=== PATIENT | male | born 1980 | race Caucasian/White ===

== ENCOUNTER 2016-07-06 12:52 | Emergency (ER) | payer OTHER ==
[2016-07-06 13:04] VITALS: TEMP 98
--- NOTE | 2016-07-06 13:06 | EDPHY ---
H & P Time Seen by Provider: 07/06/16 12:58 HPI/ROS: CHIEF COMPLAINT: Fall HISTORY OF PRESENT ILLNESS: the patient is a 36-year-old man who was working on a telephone pole when it tipped over. He states that he was about 30 feet up when the rotten pole broke and tipped. He slowly fell with it to the ground and the pole hit his head. He states that he hit his face on the pole. He denies any pain or injury to his extremities or torso. He states that he seeing stars in feels slightly confused. He denies loss of consciousness. He is ambulatory. he was wearing a hard hat. REVIEW OF SYSTEMS: Constitutional: denies: chills, fever, recent illness, recent injury EENTM: denies: blurred vision, double vision, nose congestion Respiratory: denies: cough, shortness of breath Cardiac: denies: chest pain, irregular heart rate, lightheadedness, palpitations Gastrointestinal/Abdominal: denies: abdominal pain, diarrhea, nausea, vomiting, blood streaked stools Genitourinary: denies: dysuria, frequency, hematuria, pain Musculoskeletal: See HPI Skin: denies: lesions, rash, jaundice, bruising Neurological: see HPI Hematologic/Lymphatic: denies: blood clots, easy bleeding, easy bruising Immunologic/allergic: denies: HIV/AIDS, transplant EXAM: GENERAL: Well-appearing, well-nourished and in no acute distress. HEAD: Atraumatic, normocephalic. EYES: Pupils equal round and reactive to light, extraocular movements intact, sclera anicteric, conjunctiva are normal. ENT: TMs normal, nares patent, Abrasion to left cheek, no bony tenderness. No malocclusion. Small abrasions on mucosal aspect of left cheek. NECK: Normal range of motion, supple without lymphadenopathy or JVD. LUNGS: Breath sounds clear to auscultation bilaterally and equal. No wheezes rales or rhonchi. HEART: Regular rate and rhythm without murmurs, rubs or gallops. ABDOMEN: Soft, nontender, normoactive bowel sounds. No guarding, no rebound. No masses appreciated. BACK: No CVA tenderness, no spinal tenderness, step-offs or deformities EXTREMITIES: Normal range of motion, no pitting or edema. No clubbing or cyanosis. NEUROLOGICAL: Cranial nerves II through XII grossly intact. Normal speech, normal gait. 5/5 strength, normal movement in all extremities, normal sensation PSYCH: Normal mood, normal affect. SKIN: Abrasion to left cheek Source: Patient Exam Limitations: No limitations - Medical/Surgical History Hx Asthma: No Hx Chronic Respiratory Disease: No Hx Diabetes: No Hx Cardiac Disease: No Hx Renal Disease: No Hx Cirrhosis: No Hx Alcoholism: No - Family History Significant Family History: No pertinent family hx - Social History Alcohol Use: Sober Drug Use: None Constitutional: Initial Vital Signs Temperature (C) 36.6 C 07/06/16 13:01 Heart Rate 78 07/06/16 13:01 Respiratory Rate 18 07/06/16 13:01 Blood Pressure 114/70 07/06/16 13:01 O2 Sat (%) 97 07/06/16 13:01 O2 Delivery Mode Room Air Allergies/Adverse Reactions: No Known Allergies Allergy (Unverified 09/06/11 20:56) Home Medications: Medication Instructions Recorded Miscellaneous Medical Supply [NO 1 ea MISC AD 09/06/11 HOME MEDS] Medical Decision Making ED Course/Re-evaluation: Patient's friend has arrived with pictures. Patient did actually not fall off of the pole. The pole tipped over and came to rest against a barn. He was strapped to the pole. He was not crushed by the pole. He hit his head on the pole during the impact. The pole fell from vertical to approximately 45 degree angle. 1:50 p.m. we discussed the imaging results. The patient is relieved. He is feeling much better. We discussed concussions and postconcussive symptoms. We discussed sleeping and resting as much as possible in stepwise return to activity. I will refer him to a concussion Clinic. He will also need to see his worker's comp physician. Differential Diagnosis: Partial list of the Differential diagnosis considered include but were not limited to; Concussion, abrasion, laceration and although unlikely based on the history and physical exam, I also considered facial fracture, fracture, intracranial injury, neck injury, extremity injury. I discussed these differential diagnoses and the plan with the patient as well as the usual and expected course. The patient understands that the diagnosis is provisional and that in medicine we are not always correct and that further workup is often warranted. Usual and customary warnings were given. All of the patient's questions were answered. The patient was instructed to return to the emergency department should the symptoms at all worsen or return, otherwise to followup with the physician as we discussed. - Data Points Medications Given: Discontinued Medications Sodium Chloride (Ns) 1,000 mls @ 0 mls/hr IV ONCE ONE PRN Reason: Wide Open Stop: 07/06/16 13:33 Last Admin: 07/06/16 13:35 Dose: 1,000 mls Ondansetron HCl (Zofran) 4 mg IVP EDNOW ONE Stop: 07/06/16 13:23 Last Admin: 07/06/16 13:30 Dose: 4 mg Departure - Departure Disposition: Home, Routine, Self-Care Clinical Impression: Concussion Qualifiers: Encounter type: initial encounter Loss of consciousness presence/duration: without LOC Qualified Code(s): S06.0X0A - Concussion without loss of consciousness, initial encounter Condition: Fair Instructions: Concussion (ED), Post Concussion Syndrome (ED) Referrals: Unknown,Unknown [Primary Care Provider] - As per Instructions Genia Westbrook MD [Medical Doctor] - As per Instructions Stand Alone Forms: Work Comp Follow Up
[2016-07-06] MEDS ORDERED: ONDANSETRON 4 MG/2 ML VIAL IVP ONE (13:22)
[2016-07-06] MEDS ORDERED: NS 1,000 ML IV ONE (13:32)
[2016-07-06] MEDS ORDERED: ACETAMINOPHEN 500 MG TAB ONE (13:58)
[2016-07-06 14:20] VITALS: BP 121/78; PULSE 77; RESP 16; O2SAT 95
== END 2016-07-06 14:00 | disposition home or self-care (01) ==
LOC: CED 12:52
DX: S06.0X0A Concussion without loss of consciousness, initial encounter (principal); W17.89XA Other fall from one level to another, initial encounter; Y92.89 Other specified places as the place of occurrence of the external cause; Y99.0 Civilian activity done for income or pay; Y93.89 Activity, other specified
CPT/HCPCS: 70450-PO; 70486-PO; 72125-PO; 96374; J2405